=== PATIENT | male | born 1960 | race Hispanic/Latino ===

== ENCOUNTER → 2023-05-21 | Day surgery (SDC) | payer OTHER ==
[~2023-05-21] MED LIST: CHONDR SU A NA/HYALUR SOD 1 EACH KIT IO ONE; CYCLOPENTOLATE HCL 1% OPTH SOLN 2ML BTL ONE; EPINEPHRINE HCL 1:1000 1ML 1 MG/ML AMP ONE; GLIPIZIDE ER5 MG PO; KETOROLAC TROMETHAMINE 0.5% OP SOLN 3 ML BTL ONE; LACTATED RINGER'S 1,000 ML ONE; LIDOCAINE HCL 1% 2 ML AMP ONE; MOXIFLOXACIN HCL(OPTH) 3 ML BTL ONE; NEOMYCIN/POLYMYXIN/DEX (OPTH) 3.5 GM TUBE ONE; PHENYLEPHRINE HCL 10% 5 ML OPTH SOLN ONE; POVIDONE IODINE 5% (OPTH) 30 ML BTL ONE; SIMVASTATIN40 MG PO; ZESTRIL10 MG PO
[2023-05-21 07:40] VITALS: TEMP 97.7
[2023-05-21 07:55] VITALS: BP 108/75; PULSE 63; RESP 16; O2SAT 95
== END | disposition home or self-care (01) ==
LOC: OR 06:08
PROVIDERS: ATTEND Ophthalmology
DX: H25.11 Age-related nuclear cataract, right eye (principal); E11.9 Type 2 diabetes mellitus without complications; I10 Essential (primary) hypertension; E78.5 Hyperlipidemia, unspecified; Z79.84 Long term (current) use of oral hypoglycemic drugs; Z79.899 Other long term (current) drug therapy
CPT/HCPCS: 36415; 66984; 82948; J0171; J2001; J7121; V2787

== ENCOUNTER 2024-03-28 18:55 | Emergency (ER) | payer OTHER ==
[~2024-03-28] VITALS: Ht 162.6 cm; Wt 71.2 kg
[~2024-03-28 18:55] MED LIST changes: -CHONDR SU A NA/HYALUR SOD 1 EACH KIT IO ONE; -CYCLOPENTOLATE HCL 1% OPTH SOLN 2ML BTL ONE; -EPINEPHRINE HCL 1:1000 1ML 1 MG/ML AMP ONE; -KETOROLAC TROMETHAMINE 0.5% OP SOLN 3 ML BTL ONE; -LACTATED RINGER'S 1,000 ML ONE; -LIDOCAINE HCL 1% 2 ML AMP ONE; -MOXIFLOXACIN HCL(OPTH) 3 ML BTL ONE; -NEOMYCIN/POLYMYXIN/DEX (OPTH) 3.5 GM TUBE ONE; -PHENYLEPHRINE HCL 10% 5 ML OPTH SOLN ONE; -POVIDONE IODINE 5% (OPTH) 30 ML BTL ONE
[2024-03-28 19:05] VITALS: PULSE 73; RESP 20; TEMP 98.2; O2SAT 100
[2024-03-28] MEDS ORDERED: DOXYCYCLINE HY100 MG PO (19:13)
== END 2024-03-28 19:30 | disposition home or self-care (01) ==
LOC: ER 19:13
DX: S81.802D Unspecified open wound, left lower leg, subsequent encounter (principal); W22.09XD Striking against other stationary object, subsequent encounter; I10 Essential (primary) hypertension; E11.9 Type 2 diabetes mellitus without complications
CPT/HCPCS: 99282